=== PATIENT | male | born 1960 | race Caucasian/White ===

== ENCOUNTER 2021-07-11 15:56 | Emergency (ER) | payer OTHER ==
[2021-07-11] MEDS ORDERED: Ciprofloxacin 500 MG TAB ONE (16:09)
[2021-07-11] MEDS ORDERED: Boostrix 0.5 ML (Tdap) VIAL ONE (16:09)
[2021-07-11] MEDS ORDERED: Bupivacaine 0.5% 10 ML VIAL ONE (16:10)
[2021-07-11] MEDS ORDERED: Bacitracin 1 PK ONE ×2 (17:19→17:20)
== END 2021-07-11 17:35 | disposition home or self-care (01) ==
LOC: BURERS 15:56
DX: S63.287A Dislocation of proximal interphalangeal joint of left little finger, initial encounter (principal); S01.81XA Laceration without foreign body of other part of head, initial encounter; S51.812A Laceration without foreign body of left forearm, initial encounter; S51.811A Laceration without foreign body of right forearm, initial encounter; S60.512A Abrasion of left hand, initial encounter; S60.511A Abrasion of right hand, initial encounter; L02.91 Cutaneous abscess, unspecified; Z23 Encounter for immunization; V27.4XXA Motorcycle driver injured in collision with fixed or stationary object in traffic accident, initial encounter; Y93.55 Activity, bike riding
CPT/HCPCS: 12044; 90471; 90715; J3490